=== PATIENT | male | born 1990 | race African-American/Black ===

== ENCOUNTER 2016-09-25 03:31 | Emergency (ER) | payer SELFPAY ==
[2016-09-25 03:44] VITALS: BP 156/121; PULSE 65; TEMP 97.9
[2016-09-25] MEDS ORDERED: SODIUM CHLORIDE 1,000 ML IV STA (03:56)
[2016-09-25] MEDS ORDERED: KETOROLAC TROMETHAMINE 30 MG/1 ML VIAL IVPUSH ONE (03:56)
--- NOTE | 2016-09-25 03:58 | PDOC ---
Attending Attestation - Resident Resident Name: Patrice Palacios - ED Attending Attestation I have performed the following: I have examined & evaluated the patient, The case was reviewed & discussed with the resident, I agree w/resident's findings & plan, Exceptions are as noted <Michael Marina - Last Filed: 09/25/16 03:58> - Resident Resident Name: Patrice Palacios - Attending Attestation I have performed the following: I have examined & evaluated the patient, The case was reviewed & discussed with the resident, I agree w/resident's findings & plan, Exceptions are as noted - HPI HPI: The patient presents with sudden onset RLQ pain for 1.5 hours. He states the pain has been worsening ever since. The patient denies dysuria, hematuria, hesitancy, frequency and urgency. The patient denies chest pain, palpitations and lightheadedness. The patient denies nausea, vomiting and diarrhea. - Physicial Exam PE: GENERAL: Well-appearing, well-nourished. No apparent distress. HEENT: Normocephalic, atraumatic. PERRL, EOM intact. CARDIOVASCULAR: Normal S1, S2. Regular rate and rhythm. PULMONARY: Clear to auscultation bilaterally. ABDOMEN: Soft, non-distended,Voluntary guarding. Diffuse abdominal tenderness to palpation. No peritoneal signs. EXTREMITIES: Normal ROM in all four extremities. No gross deformities. SKIN: Warm, dry. No rash NEUROLOGICAL: No focal neurological deficits. - Medical Decision Making Documentation prepared by Veda Lizama, acting as certified medical coder for Michael Marina MD/DO. <Veda Lizama - Last Filed: 09/25/16 04:01>
[2016-09-25] MEDS ORDERED: KETOROLAC TROMETHAMINE 30 MG/1 ML VIAL ONE (04:00)
--- NOTE | 2016-09-25 04:05 | PDOC ---
History of Present Illness - General Chief Complaint: Pain, Acute Stated Complaint: LOWERE ABDOMINAL PAIN Time Seen by Provider: 09/25/16 03:42 History Source: Patient Exam Limitations: No Limitations - History of Present Illness Initial Comments: 09/25/16 03:59 The patient is an otherwise healthy male here today complaining of right lower quadrant pain. The pain started suddenly 1.5 hours ago, located in the same spot. The pain has gotten worse since the initial presentation. He denies nausea , vomiting, fevers and chills. The pain is described as colicky and doesn't radiate anywhere. Past History - Past Medical History Allergies/Adverse Reactions: Allergies Allergy/AdvReac Type Severity Reaction Status Date / Time No Known Allergies Allergy Verified 09/25/16 03:38 Other medical history: Pt denies - Psycho/Social/Smoking Cessation Hx Suicidal Ideation: No Smoking History: Never smoked Have you smoked in the past 12 months: No Information on smoking cessation initiated: No Hx Alcohol Use: No Drug/Substance Use Hx: Yes (Marijuana) Substance Use Type: Marijuana Review of Systems - Review of Systems Constitutional: No: Chills, Fever HEENTM: No: Blurred Vision, Recent change in vision Respiratory: No: Cough, Orthopnea, Shortness of Breath Cardiac (ROS): No: Chest Pain, Lightheadedness ABD/GI: No: Constipated, Diarrhea, Nausea, Vomiting : No: Burning, Dysuria, Hematuria Musculoskeletal: No: Back Pain, Joint Pain Integumentary: No: Sweating Neurological: No: Headache Endocrine: No: Increased Thirst, Increased Urine *Physical Exam - Vital Signs Last Vital Signs Temp Pulse Resp BP Pulse Ox 97.9 F 65 20 156/121 98 09/25/16 03:39 09/25/16 03:39 09/25/16 03:39 09/25/16 03:39 09/25/16 03:39 - Physical Exam General Appearance: Yes: Nourished, Moderate Distress HEENT: positive: Normal Voice, Hearing Grossly Normal Respiratory/Chest: positive: Lungs Clear, Normal Breath Sounds Cardiovascular: positive: Regular Rhythm, Regular Rate Vascular Pulses: Dorsalis-Pedis (R): 2+, Doralis-Pedis (L): 2+ Gastrointestinal/Abdominal: positive: Tender (in right side of abdomen) Musculoskeletal: negative: CVA Tenderness (R), CVA Tenderness (L) Integumentary: positive: Normal Color, Dry, Warm Neurologic: positive: Fully Oriented, Alert ED Treatment Course - LABORATORY CBC & Chemistry Diagram: 09/25/16 04:10 09/25/16 04:10 Medical Decision Making - Medical Decision Making 09/25/16 04:07 Patient is an otherwise healthy male here today complaining of RLQ abdominal pain. Hypertensive, but likely secondary to patient's pain. Other vital signs normal and stable. Differential diagnosis includes, but is not limited to: kidney stones and appendicitis. Physical exam is most consistent with kidney stones. Since this would be patient's first episode of kidney stones, will do CBC, CMP, UA, and CT. Will give IV NS and toradol. 09/25/16 04:50 CBC normal. CMP shows a total bilirubin of 2.0. Patient reassessed and feeling better. Pain under control. 09/25/16 05:03 CT read as "Possible 2 mm distal right ureteral stone without hydroureter or bladder inflammation." UA canceled. Patient to be discharged with outpatient follow up. *DC/Admit/Observation/Transfer Diagnosis at time of Disposition: Kidney stone - Discharge Dispostion Disposition: HOME Condition at time of disposition: Improved Admit: No - Patient Instructions Printed Discharge Instructions: DI for Kidney Stones - Attestations Physician Attestion: 09/25/16 05:05 I, Dr. Patrice Palacios, attest that this document has been prepared under my direction and personally reviewed by me in its entirety. I further attest, that it accurately reflects all work, treatment, procedures and medical decision -making performed by me.
[2016-09-25 04:14] LABS: MCH 25.8 pg (25.7-33.7); MCHC 32.3 g/dl (32.0-35.9); MEAN CELL VOLUME 79.9 fl (80-96); MEAN PLT VOLUME 8.9 fl (7.5-11.1); PLATELET COUNT 122 K/MM3 (134-434); RDW 13.3 % (11.9-15.9); WHITE BLOOD COUNT 5.3 K/mm3 (4.0-10.0)
[2016-09-25] MEDS ORDERED: ONDANSETRON 4 MG/2 ML VIAL ONE (04:16)
[2016-09-25 04:37] LABS: ALBUMIN 4.6 g/dl (3.4-5.0); ANION GAP 9 (8-16); CALCIUM 9.5 mg/dL (8.5-10.1); CO2 24 mmol/L (21-32); CREATININE 1.3 mg/dL (0.7-1.3); GLUCOSE,RANDOM 109 mg/dL (74-106); SGOT/AST 21 U/L (15-37); SGPT/ALT 20 U/L (12-78)
[2016-09-25 04:39] LABS: ALK PHOS 91 U/L (45-117); TOT PROT 7.4 g/dl (6.4-8.2)
[2016-09-25 05:07] LABS: PLATELET COMMENT2 NO CLOTTING DETECTED; PLATELET COMMENT3 FEW LARGE PLTS; PLATELET ESTIMATE SLT DECREASED (NORMAL)
== END 2016-09-25 05:18 | disposition home or self-care (01) ==
LOC: JER 03:31
PROC: 3E0333Z Introduction of Anti-inflammatory into Peripheral Vein, Percutaneous Approach (ICD-10-PCS; principal; 2016-09-25)
DX: N20.0 Calculus of kidney (principal)
CPT/HCPCS: 74176; 80053; 85025; 99282-25